=== PATIENT | male | born 1965 | race Hispanic/Latino ===

== ENCOUNTER 2025-07-08 17:29 | Inpatient (IN) | payer MEDICARE ==
[~2025-07-08] VITALS: Ht 170.2 cm; Wt 103.9 kg
[2025-07-08] MEDS ORDERED: ACETAMINOPHEN 325 MG TAB PO PRN (18:00)
[2025-07-08] MEDS ORDERED: DEXTROSE 50% SYRINGE 50 ML IV PRN (18:00)
[2025-07-08] MEDS ORDERED: HYDRALAZINE HCL 20 MG/ML VIAL IV PRN (18:00)
[2025-07-08] MEDS ORDERED: POLYETHYLENE GLYCOL 3350 17 GM PACK PO PRN (18:00)
[2025-07-08] MEDS ORDERED: ONDANSETRON HCL INJ 2MG/ML 2ML 2 MG/ML VIAL IV PRN (18:00)
[2025-07-08] MEDS ORDERED: BISACODYL 10 MG SUPP PR PRN (18:00)
[2025-07-08 19:52] VITALS: BP 126/65; PULSE 70; RESP 20; TEMP 97.7; O2SAT 98
[2025-07-08 20:00] VITALS: BP 126/65; PULSE 70; RESP 20; TEMP 97.7; O2SAT 98
[2025-07-08] MEDS ORDERED: CEFTRIAXONE 1 GM VIAL IV ONE (20:15)
[2025-07-08] MEDS ORDERED: METFORMIN HCL1000 MG PO (20:18)
[2025-07-08] MEDS ORDERED: LOSARTAN POTASS25 MG PO (20:18)
[2025-07-08] MEDS ORDERED: ATORVASTATIN CA20 MG PO (20:18)
[2025-07-08] MEDS ORDERED: GLIPIZIDE10 MG PO (20:18)
[2025-07-08] MEDS: INSULIN LISPRO 100 UNIT/1 ML 3ML VIAL SQ SCH (20:49)
[2025-07-08 22:27] VITALS: BP 126/65; PULSE 70; RESP 20; TEMP 97.7; O2SAT 98
[2025-07-08 23:52] VITALS: PULSE 65; RESP 15; O2SAT 99
[2025-07-09] VITALS (9 sets, daily range): BP systolic 120–155; BP diastolic 58–83; PULSE 60–73; RESP 15–20; TEMP 97.5–98.2; O2SAT 94–98
[2025-07-09 06:59] LABS: BASOPHILS % 0.8 % (0.0-1.0); EOSINOPHILS % 3.5 % (0.0-6.0); LYMPHOCYTES % 27.6 % (18.0-39.1); MONOCYTES % 6.5 % (4.4-11.3); NEUTROPHILS % 61.3 % (38.7-80.0); RED CELL DISTRIBUTION WIDTH 12.0 % (11.7-14.4)
[2025-07-09 07:13] LABS: INR 0.89
[2025-07-09 07:29] LABS: CHOL/HDL RATIO 5.0 (3.9-4.7); EST GLOMERULAR FILTRATION RATE 104.0 ML/MIN (>=60); LDL CHOLESTEROL 100.0 MG/DL (60-130)
[2025-07-09] MEDS: DOCUSATE SODIUM 100 MG CAP PO SCH (09:21)
[2025-07-09] MEDS: SENNOSIDES 8.6 MG TAB PO SCH (09:21)
[2025-07-09] MEDS: LOSARTAN POTASSIUM 25 MG TAB PO SCH (09:22)
[2025-07-09] MEDS: CEFTRIAXONE 2 GM in SODIUM CHLORIDE 0.9% 100 ML IV SCH (17:26)
[2025-07-09] MEDS ORDERED: IOPAMIDOL 370 MG/ML 100 ML INFUS..BTL INJ ONE (18:04)
[2025-07-09] MEDS ORDERED: SODIUM CHLORIDE 0.9% 100 ML ONE (18:04)
[2025-07-09] MEDS: ATORVASTATIN 20 MG TAB PO SCH (21:35)
[2025-07-10] VITALS: BP 122/66; PULSE 57; RESP 18; TEMP 97.4; O2SAT 98
[2025-07-10 04:00] VITALS: BP 124/88; PULSE 63; RESP 18; TEMP 98.2; O2SAT 96
[2025-07-10 09:07] VITALS: BP 139/70; PULSE 73; RESP 18; TEMP 97.7; O2SAT 99
[2025-07-10] MEDS: INSULIN LISPRO 100 UNIT/1 ML 3ML VIAL SQ SCH (10:15)
[2025-07-10 11:58] VITALS: BP 114/72; PULSE 68; RESP 18; TEMP 97.7; O2SAT 98
[2025-07-10 16:38] VITALS: BP 114/67; PULSE 67; RESP 18; TEMP 97.8; O2SAT 97
[2025-07-10 17:43] LABS: BASOPHILS % 0.7 % (0.0-1.0); EOSINOPHILS % 2.7 % (0.0-6.0); LYMPHOCYTES % 23.0 % (18.0-39.1); MONOCYTES % 7.5 % (4.4-11.3); NEUTROPHILS % 65.7 % (38.7-80.0); RED CELL DISTRIBUTION WIDTH 12.1 % (11.7-14.4)
[2025-07-10 18:07] LABS: EST GLOMERULAR FILTRATION RATE 104.0 ML/MIN (>=60)
[2025-07-10 20:00] VITALS: BP 135/80; PULSE 61; RESP 18; TEMP 97.8; O2SAT 97
[2025-07-10] MEDS: INSULIN GLARGINE 100 UNITS/ML VIAL SQ SCH (21:07)
[2025-07-11] VITALS (7 sets, daily range): BP systolic 119–134; BP diastolic 61–79; PULSE 56–70; RESP 18–20; TEMP 97.6–98.2; O2SAT 94–100
[2025-07-11 07:41] LABS: BASOPHILS % 0.6 % (0.0-1.0); EOSINOPHILS % 2.9 % (0.0-6.0); LYMPHOCYTES % 24.0 % (18.0-39.1); MONOCYTES % 7.5 % (4.4-11.3); NEUTROPHILS % 64.7 % (38.7-80.0); RED CELL DISTRIBUTION WIDTH 12.0 % (11.7-14.4)
[2025-07-11 08:05] LABS: EST GLOMERULAR FILTRATION RATE 102.0 ML/MIN (>=60)
[2025-07-11] MEDS: INSULIN GLARGINE 100 UNITS/ML VIAL SQ SCH (21:23)
[2025-07-12 04:00] VITALS: BP 135/75; PULSE 61; RESP 20; TEMP 97.5; O2SAT 96
[2025-07-12 06:30] LABS: BASOPHILS % 0.6 % (0.0-1.0); EOSINOPHILS % 3.2 % (0.0-6.0); LYMPHOCYTES % 24.8 % (18.0-39.1); MONOCYTES % 7.6 % (4.4-11.3); NEUTROPHILS % 63.7 % (38.7-80.0); RED CELL DISTRIBUTION WIDTH 12.1 % (11.7-14.4)
[2025-07-12 07:11] LABS: EST GLOMERULAR FILTRATION RATE 101.0 ML/MIN (>=60)
[2025-07-12 07:35] VITALS: BP 117/76; PULSE 62; RESP 18; TEMP 97.6; O2SAT 97
[2025-07-12 12:03] VITALS: BP 142/73; PULSE 62; RESP 20; TEMP 97.7; O2SAT 100
[2025-07-12 16:09] VITALS: BP 126/74; PULSE 66; RESP 20; TEMP 98.1; O2SAT 98
[2025-07-12] MEDS: ENOXAPARIN SOD INJ 40 MG/0.4 ML SYR SC SCH (17:00)
[2025-07-12] MEDS ORDERED: LANTUS 3ML100 UNITS/ SC (17:28)
[2025-07-12] MEDS ORDERED: INSULIN PEN NE1 EAC1 SC (17:28)
== END 2025-07-12 18:40 | disposition home or self-care (01) | DRG 623 ==
LOC: MED/SURG3 17:29
PROVIDERS: ADMIT Internal Medicine; ATTEND Internal Medicine
PROC: 0JBQ0ZZ Excision of Right Foot Subcutaneous Tissue and Fascia, Open Approach (ICD-10-PCS; principal; 2025-07-09)
PROC: 05HY33Z Insertion of Infusion Device into Upper Vein, Percutaneous Approach (ICD-10-PCS; 2025-07-09)
DX: E11.69 Type 2 diabetes mellitus with other specified complication (principal); L97.412 Non-pressure chronic ulcer of right heel and midfoot with fat layer exposed; M86.171 Other acute osteomyelitis, right ankle and foot; E11.42 Type 2 diabetes mellitus with diabetic polyneuropathy; E11.65 Type 2 diabetes mellitus with hyperglycemia; I10 Essential (primary) hypertension; E78.2 Mixed hyperlipidemia; E66.812 Obesity, class 2; E11.628 Type 2 diabetes mellitus with other skin complications; E11.51 Type 2 diabetes mellitus with diabetic peripheral angiopathy without gangrene; E11.621 Type 2 diabetes mellitus with foot ulcer; B95.1 Streptococcus, group B, as the cause of diseases classified elsewhere; Z79.84 Long term (current) use of oral hypoglycemic drugs; Z68.35 Body mass index [BMI] 35.0-35.9, adult
CPT/HCPCS: 36415; 36569; 71045; 75635; 80053; 80061; 82948; 83036; 83735; 84443; 85025; 85610; 85730; 86140; 87071; 87205; 93306; 93925; 94799; 99252; J0696; J7050; Q9967